=== PATIENT | male | born 1985 | race Caucasian/White ===

== ENCOUNTER → 2019-08-19 | Outpatient (CLI) | payer BC ==
--- NOTE | 2019-08-19 12:44 | Diagnostic Imaging Report ---
EXAMINATION: Right foot radiographs, 3 views. COMPARISON: None. HISTORY: 34-year-old male, right leg pain. 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 There is no identified acute fracture. There is no radiopaque foreign body. The joint spaces are well preserved. IMPRESSION: Unremarkable radiographs of the right foot. Dictated by: Dictated on workstation # [id number]
== END ==
LOC: RAD FS 12:11
PROVIDERS: ATTEND Nurse Practitioner
DX: M79.604 Pain in right leg (principal)
CPT/HCPCS: 73630